=== PATIENT | female | born 2000 | race Hispanic/Latino ===

== ENCOUNTER 2018-09-17 20:33 | Emergency (ER) | payer OTHER ==
[2018-09-17 21:20] LABS: Absolute Lymphocytes (CBC) 1.1 K/uL (0.7-4.9); Basophils % 0.2 % (0-1.3); Eosinophils % 0.1 % (0-4.4); Hematocrit 41.3 % (36.0-45.0); Lymphocytes % 11.5 % (15.3-44.8); MPV 7.9 fL (7.6-11.3); Monocytes % 5.8 % (3.3-12.3); RBC Red Blood Cell Count 5.01 M/uL (3.86-4.86)
[2018-09-17] MEDS ORDERED: NA CHLORIDE 0.9% 1,000 ML ONE ×2 (21:23→23:09)
[2018-09-17] MEDS ORDERED: ONDANSETRON 4 MG/2 ML VIAL ONE (21:23)
[2018-09-17 22:06] LABS: ALT/SGPT 26 U/L (12-78); AST/SGOT 16 U/L (15-37); Albumin 4.2 g/dL (3.4-5.0); Alkaline Phosphatase 77 U/L (45-117); BUN Blood Urea Nitrogen 15 mg/dL (7-18); Bicarbonate 24 mmol/L (21-32); Bilirubin Direct 0.5 mg/dL (0-0.2); Bilirubin Total 1.4 mg/dL (0.2-1.0); Glucose Level 89 mg/dL (74-106); HCG, Quantitative 95478 mIU/mL (1-3); Lipase 163 U/L (73-393); Potassium 3.4 mmol/L (3.5-5.1); Protein, Total 7.9 g/dL (6.4-8.2); Sodium Level 138 mmol/L (136-145)
[2018-09-17] MEDS ORDERED: POTASSIUM CL SA 10 MEQ TAB PO ONE (23:08)
[2018-09-17] MEDS ORDERED: PROMETHAZINE 25 MG/ML VIAL ONE (23:09)
[2018-09-18 00:01] LABS: Urine Blood NEGATIVE (NEG); Urine Glucose NEGATIVE (NEG); Urine Protein 2+ (NEG); Urine Specific Gravity >1.030 (1.005-1.030)
--- NOTE | 2018-09-18 00:19 | ER ---
Nurse's Notes [facility] Name: Marisel Peacock Age: 18 yrs Sex: Female : 2000 Arrival Date: 09/17/2018 Time: 20:34 Bed 7 Private MD: Diagnosis: Hyperemesis gravidarum. Upper abdominal pain. Sludge in gallbladder Presentation: 09/17 20:45 Presenting complaint: Patient states: 12 weeks , severe nausea and vomiting x 3 tl2 weeks, unable to hold down anything. Seen at another ER and was given medication for nausea but it is not helping. Reports epigastric pain that started yesterday. Transition of care: patient was not received from another setting of care. Onset of symptoms was August 2018. Risk Assessment: Do you want to hurt yourself or someone else? Patient reports no desire to harm self or others. Initial Sepsis Screen: Does the patient meet any 2 criteria? No. Patient's initial sepsis screen is negative. Does the patient have a suspected source of infection? No. Patient's initial sepsis screen is negative. Care prior to arrival: None. 20:45 Method Of Arrival: Ambulatory tl2 20:45 Acuity: JOSÉ MIGUEL 3 tl2 Triage Assessment: 20:46 GI: Reports intolerance of fluids, intolerance of food, nausea, vomiting. 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 - Social history:: Smoking status: Patient/guardian denies using tobacco. - Ebola Screening: : No symptoms or risks identified at this time. Screenin:46 Abuse screen: Denies threats or abuse. Nutritional screening: No deficits noted. tl2 Tuberculosis screening: No symptoms or risk factors identified. Fall Risk None identified. Assessment: 20:50 General: Appears uncomfortable, Behavior is calm, cooperative. General: Appears tr5 uncomfortable. 21:16 Pain: Complains of pain in abdomen. 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 Cardiovascular: Heart tones present Bruits absent. Respiratory: Airway is patent Trachea midline Respiratory effort is even, unlabored, Respiratory pattern is regular, symmetrical, Breath sounds are clear bilaterally. GI: Bowel sounds present X 4 quads. Abd is soft X 4 quads Reports intolerance of fluids, nausea, vomiting. : No signs and/or symptoms were reported regarding the genitourinary system. EENT: No signs and/or symptoms were reported regarding the EENT system. Derm: No signs and/or symptoms reported regarding the dermatologic system. Musculoskeletal: Capillary refill < 3 seconds, 22:06 Reassessment: Patient appears in no apparent distress at this time. Patient is alert, tr5 oriented x 3, equal unlabored respirations, skin warm/dry/pink. 09/18 00:31 Reassessment: Patient appears in no apparent distress at this time. Patient is alert, aa1 oriented x 3, equal unlabored respirations, skin warm/dry/pink. Discussed d/c \T\ f/u instructions with pt \T\ significant other; denies questions or concerns at this time Patient states feeling better. Vital Signs: 09/17 20:46 BP 130 / 70; Pulse 81; Resp 20; Temp 97.9(O); Pulse Ox 100% on R/A; Weight 68.04 kg; tl2 Height 4 ft. 10 in. (147.32 cm); Pain 5/10; 21:45 BP 128 / 75; Pulse 80; Resp 16; Pulse Ox 100% on R/A; tr5 09/18 00:31 BP 121 / 69; Pulse 73; Resp 16; Temp 98.1; Pulse Ox 99% on R/A; Pain 0/10; aa1 09/17 20:46 Body Mass Index 31.35 (68.04 kg, 147.32 cm) tl2 ED Course: 09/17 20:34 Patient arrived in ED. am2 20:42 Ned Amaya, TISH is Primary Nurse. tr5 20:45 Triage completed. tl2 20:46 Arm band placed on right wrist. tl2 20:47 Patient has correct armband on for positive identification. Placed in gown. Bed in low tl2 position. Call light in reach. Side rails up X 1. 20:53 Allen Santos MD is Attending Physician. pkl 23:41 US Abdomen Limited In Process Unspecified. EDSD 09/18 00:31 No provider procedures requiring assistance completed. IV discontinued, intact, aa1 bleeding controlled, No redness/swelling at site. Pressure dressing applied. Administered Medications: 09/17 21:11 Drug: NS 0.9% 1000 ml Route: IV; Rate: 1000 ml; Site: left antecubital; aa1 22:00 Follow up: IV Status: Completed infusion; IV Intake: 1000ml aa1 21:11 Drug: Zofran 4 mg Route: IVP; Site: left antecubital; aa1 22:35 Follow up: Response: No adverse reaction; Nausea unchanged aa1 23:01 Drug: Phenergan 25 mg Route: IVP; Site: left antecubital; tr5 23:23 Follow up: Response: Nausea is decreased tr5 23:02 Drug: K-Dur 20 mEq Route: PO; tr5 09/18 00:29 Follow up: Response: No adverse reaction aa1 09/17 23:02 Drug: NS 0.9% 1000 ml Route: IV; Rate: 1000 ml; Site: left antecubital; tr5 09/18 00:29 Follow up: IV Status: Completed infusion; IV Intake: 1000ml aa1 Intake: 09/17 22:00 IV: 1000ml; Total: 1000ml. aa1 09/18 00:29 IV: 1000ml; Total: 2000ml. aa1 Outcome: 00:15 Discharge ordered by . pkl 00:31 Discharged to home ambulatory, with significant other. aa1 00:31 Condition: good 00:31 Discharge instructions given to patient, significant other, Instructed on discharge instructions, follow up and referral plans. medication usage, Demonstrated understanding of instructions, follow-up care, medications, Prescriptions given X 2. 00:33 Patient left the ED. aa1 Signatures: Dispatcher [employer] [facility] Anahi Handley RN RN aa1 Allen Santos MD MD pkl Jennifer Cao RN RN tl2 Marisela Koch Tommie RN RN tr5 Corrections: (The following items were deleted from the chart) 09/17 20:47 20:45 Presenting complaint: Patient states: 12 weeks , severe nausea and tl2 vomiting x 3 weeks, unable to hold down anything. Seen at another ER and was given medication for nausea but it is not helping. tl2 21:17 20:50 General: Appears uncomfortable, tr5 tr5
--- NOTE | 2018-09-18 00:20 | EDPHYS ---
Physician Documentation [facility] Name: Marisel Peacock Age: 18 yrs Sex: Female : 2000 Arrival Date: 09/17/2018 Time: 20:34 Bed 7 Private MD: ED Physician Allen Santos HPI: 09/17 21:03 This 18 yrs old Female presents to ER via Ambulatory with complaints of pkl Abdominal Pain, Vomiting. 21:03 The patient presents to the emergency department with nausea, vomiting. Onset: The pkl symptoms/episode began/occurred 3 week(s) ago. Associated signs and symptoms: Pertinent positives: abdominal pain, upper abdomen. Patient said she is 12 weeks . Was seen at [place] [facility] 1 week ago for same complaints. Was given 2 liters of fluid and sent home.. 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 - Social history:: Smoking status: Patient/guardian denies using tobacco. - Ebola Screening: : No symptoms or risks identified at this time. ROS: 21:03 Eyes: Negative for injury, pain, redness, and discharge, ENT: Negative for injury, pkl pain, and discharge, Neck: Negative for injury, pain, and swelling, Cardiovascular: Negative for chest pain, palpitations, and edema, Respiratory: Negative for shortness of breath, cough, wheezing, and pleuritic chest pain. 21:03 Abdomen/GI: Positive for abdominal pain, nausea and vomiting, of the right upper quadrant and left upper quadrant. 21:03 Back: Negative for acute changes. 21:03 : Negative for urinary symptoms. 21:03 MS/extremity: Negative for acute changes. 21:03 Skin: Negative for rash. 21:03 Neuro: Negative for altered mental status. Exam: 21:03 Head/Face: Normocephalic, atraumatic. Eyes: Pupils equal round and reactive to light, pkl extra-ocular motions intact. Lids and lashes normal. Conjunctiva and sclera are non-icteric and not injected. Cornea within normal limits. Periorbital areas with no swelling, redness, or edema. ENT: Nares patent. No nasal discharge, no septal abnormalities noted. Tympanic membranes are normal and external auditory canals are clear. Oropharynx with no redness, swelling, or masses, exudates, or evidence of obstruction, uvula midline. Mucous membranes moist. Neck: Trachea midline, no thyromegaly or masses palpated, and no cervical lymphadenopathy. Supple, full range of motion without nuchal rigidity, or vertebral point tenderness. No Meningismus. Chest/axilla: Normal chest wall appearance and motion. Nontender with no deformity. No lesions are appreciated. Cardiovascular: Regular rate and rhythm with a normal S1 and S2. No gallops, murmurs, or rubs. Normal PMI, no JVD. No pulse deficits. Respiratory: Lungs have equal breath sounds bilaterally, clear to auscultation and percussion. No rales, rhonchi or wheezes noted. No increased work of breathing, no retractions or nasal flaring. 21:03 Abdomen/GI: Bowel sounds: normal, Palpation: soft, mild abdominal tenderness, in the right upper quadrant and left upper quadrant. 21:03 Back: Exam negative for acute changes. 21:03 : Exam negative for acute changes. 21:03 Musculoskeletal/extremity: Exam is negative for acute changes. 21:03 Skin: Exam negative for rash. 21:03 Neuro: Orientation: is normal, Mentation: is normal, Cranial nerves: grossly normal, Motor: is normal. Vital Signs: 20:46 BP 130 / 70; Pulse 81; Resp 20; Temp 97.9(O); Pulse Ox 100% on R/A; Weight 68.04 kg; tl2 Height 4 ft. 10 in. (147.32 cm); Pain 5/10; 21:45 BP 128 / 75; Pulse 80; Resp 16; Pulse Ox 100% on R/A; tr5 09/18 00:31 BP 121 / 69; Pulse 73; Resp 16; Temp 98.1; Pulse Ox 99% on R/A; Pain 0/10; aa1 09/17 20:46 Body Mass Index 31.35 (68.04 kg, 147.32 cm) tl2 MDM: 09/17 20:53 Patient medically screened. pkl 09/18 00:11 Data reviewed: vital signs, nurses notes, lab test result(s). ED course: Discussed lab. pkl and US results with patient. 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 Patient understood instruction. 09/17 21:02 Order name: CBC with Diff pkl 09/17 21:02 Order name: Chem 7 pkl 09/17 21:02 Order name: LFT's; Complete Time: 22:39 pkl 09/17 21:02 Order name: Lipase; Complete Time: 22:39 pkl 09/17 21:02 Order name: Quantitative Hcg; Complete Time: 22:39 pkl 09/17 21:03 Order name: CBC with Automated Diff; Complete Time: 21:30 EDMS 09/17 21:03 Order name: Basic Metabolic Panel; Complete Time: 22:39 EDMS 09/17 22:42 Order name: US Abdomen Limited pkl 09/17 22:59 Order name: Urine Dipstick--Ancillary (enter results) [facility] 09/17 21:15 Order name: Urine Dipstick-Ancillary (obtain specimen); Complete Time: 22:35 bb Administered Medications: 09/17 21:11 Drug: NS 0.9% 1000 ml Route: IV; Rate: 1000 ml; Site: left antecubital; aa1 22:00 Follow up: IV Status: Completed infusion; IV Intake: 1000ml aa1 21:11 Drug: Zofran 4 mg Route: IVP; Site: left antecubital; aa1 22:35 Follow up: Response: No adverse reaction; Nausea unchanged aa1 23:01 Drug: Phenergan 25 mg Route: IVP; Site: left antecubital; tr5 23:23 Follow up: Response: Nausea is decreased tr5 23:02 Drug: K-Dur 20 mEq Route: PO; tr5 09/18 00:29 Follow up: Response: No adverse reaction aa1 09/17 23:02 Drug: NS 0.9% 1000 ml Route: IV; Rate: 1000 ml; Site: left antecubital; tr5 09/18 00:29 Follow up: IV Status: Completed infusion; IV Intake: 1000ml aa1 Disposition: 09/18/18 00:15 Discharged to Home. Impression: Hyperemesis gravidarum. Upper abdominal pain. Sludge in gallbladder. - Condition is Stable. - Prescriptions for Augmentin 875- 125 mg Oral Tablet - take 1 tablet by ORAL route every 12 hours for 7 days; 14 tablet. Zofran 4 mg Oral Tablet - take 1 tablet by ORAL route every 8 hours As needed; 15 tablet. - Medication Reconciliation Form, Thank You Letter, Antibiotic Education, Prescription Opioid Use form. - Follow up: Private Physician; When: 1 - 2 days; Reason: Re-evaluation by your physician. - Problem is new. - Symptoms have improved. Signatures: Dispatcher [employer] [facility] Anahi Handley RN RN aa1 Allen Santos MD MD pkl Fany Luis RN RN bb Jennifer Cao RN RN tl2 Ned Amaya RN RN tr5 Corrections: (The following items were deleted from the chart) 00:33 00:15 09/18/2018 00:15 Discharged to Home. Impression: Hyperemesis gravidarum. Upper aa1 abdominal pain. Sludge in gallbladder. Condition is Stable. Forms are Medication Reconciliation Form, Thank You Letter, Antibiotic Education, Prescription Opioid Use. Follow up: Private Physician; When: 1 - 2 days; Reason: Re-evaluation by your physician. Problem is new. Symptoms have improved. pkl
--- NOTE | 2018-09-18 08:07 | RAD REPORT ---
EXAM DESCRIPTION: US - Abdomen Exam Limited - 09/17/2018 11:40 pm CLINICAL HISTORY: Abdominal pain. COMPARISON: None. FINDINGS: Echogenic material fills almost the entire gallbladder. Posterior shadowing is not seen. T he gallbladder wall appears borderline thickened The biliary tree is normal caliber. IMPRESSION: Echogenic material fills almost the entire gallbladder probably representing sludge. Borderline gallbladder wall thickening
== END 2018-09-18 00:33 | disposition home or self-care (01) ==
LOC: ER 20:33
DX: O21.0 Mild hyperemesis gravidarum (principal); Z3A.12 12 weeks gestation of pregnancy
CPT/HCPCS: 36415; 76705; 80048; 80076; 81003; 83690; 84702; 85025; 96361; 96374; 96375; 99283; J2405; J2550; J7030